=== PATIENT | female | born 1990 | race American Indian/Alaskan Native ===

== ENCOUNTER 2016-08-10 17:10 | Emergency (ER) | payer OTHER, MEDICAID ==
[2016-08-10 17:19] VITALS: TEMP 99; O2SAT 100
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
[2016-08-10 18:36] VITALS: BP 118/75; PULSE 81; RESP 16
== END 2016-08-10 18:34 | disposition home or self-care (01) ==
LOC: C.ER 17:10
DX: M54.89 Other dorsalgia (principal); M62.838 Other muscle spasm; V89.2XXA Person injured in unspecified motor-vehicle accident, traffic, initial encounter